=== PATIENT | female | born 1950 | race Caucasian/White ===

== ENCOUNTER 2017-06-21 10:30 | Day surgery (SDC) | payer MEDICARE, OTHER ==
--- NOTE | 2017-06-14 16:10 | HP ---
CC: Dr. Desmond Philip; Dr. Alberto Mcmahon * PREOPERATIVE HISTORY AND PHYSICAL: DATE OF PREOPERATIVE HISTORY AND PHYSICAL EXAMINATION: 06/13/17 DATE OF SURGERY: This patient is scheduled for same-day surgery admission by Dr. Green on 06/21/17. ATTENDING SURGEON: Dr. Maciej Green * (dictated by Jyoti Velazquez NP). CHIEF COMPLAINT: Gallstones. HISTORY OF PRESENT ILLNESS: The patient is a 66-year-old female referred to Dr. Green by Dr. Mcmahon for gallstones. The patient had seen Dr. Parks for followup of "inflammatory arthritis." She had blood work and was noted to have an abnormal alkaline phosphatase elevated at 139 and was sent for a gallbladder ultrasound. This showed gallstones and calcification of the wall consistent with a "porcelain gallbladder" indicating a risk for carcinoma. She was sent to Dr. Mcmahon and had additional imaging by CAT scan that showed thickening of the fundus felt likely to represent noncalcified stones. Dr. Mcmahon recommended cholecystectomy. She denies any abdominal pain, nausea, vomiting, or diarrhea; she denies any fever or chills; she denies jaundice, tea-colored urine, or tessie colored stools. She does report weight loss of 50 pounds over a 6 to 12-month period, which was intentional. Dr. Green has reviewed the findings with the patient and examined her and has recommended laparoscopic cholecystectomy. Dr. Green discussed the nature of the surgical procedure. The relevant risks, benefits, and alternatives and today I reviewed the typical same-day surgery hospitalization as well as the expected postoperative care and recovery. The patient has had a chance to ask questions and stated that she understands the information and satisfied with the answers given to her questions. She will sign surgical consent on the day of surgery. PAST MEDICAL HISTORY: Inflammatory arthritis, hypothyroidism, and depression. PAST SURGICAL HISTORY: [place] [address] Arizmendi, open reduction and internal fixation after ankle fracture in 1994. MEDICATIONS: 1. Cymbalta 30 mg 1 tablet daily in the morning. 2. Cymbalta 60 mg 1 tablet daily in the morning. 3. Methylphenidate 36 mg 2 tablets daily in the morning. 4. Lamictal 200 mg 1 tablet b.i.d. 5. Mirtazapine 45 mg p.o. daily in the evening. 6. Ziprasidone 80 mg 2 tablets daily in the evening. 7. Levothyroxine 112 mcg p.o. daily in the morning. 8. Hydroxychloroquine 200 mg 2 tablets daily at dinner. 9. Aspirin 81 mg p.o. daily and I advised the patient to take her last dose on 06/13/17. ALLERGIES: PENICILLIN causes swelling and hives; SULFA antibiotics cause swelling and hives; WELLBUTRIN causes hallucination; and TETANUS caused GI upset. FAMILY HISTORY: Mother diagnosed with colon cancer at age 60. Father with a history of myocardial infarction age 74. No known anesthesia complications, bleeding tendencies or clotting disorders. SOCIAL HISTORY: She lives with her ; she quit smoking in 1999; she denies the use of alcohol or other substances. REVIEW OF SYSTEMS: Constitutional: Denies fevers, chills, or excessive fatigue. She had a 50 pounds intentional weight loss over a 6 to 12-month period. Endocrine: No diabetes. She is on thyroid replacement therapy. Hematologic: No easy bruising or bleeding. She has never received a blood transfusion. Respiratory: No chronic or dyspnea on exertion. Cardiovascular: No anginal chest pain or palpitations. Gastrointestinal: No nausea, vomiting, diarrhea, or constipation. No change in bowel habits. No change in the color of stool. No abdominal pain. No heartburn. Genitourinary: No tea-colored urine. No dysuria. Her serum creatinine has been elevated in January 2017 it was 1.46; April 2017 was 1.67, and therefore, it was repeated on 06/13/17 and was 1.89; therefore, she will be referred to her primary care provider Dr. Philip for medical evaluation prior to surgery. Musculoskeletal: Inflammatory arthritis. Neurologic: No headache or blurred vision or areas of focal weakness. General: No anesthesia complications. No history of deep venous thrombosis or pulmonary embolism. PHYSICAL EXAMINATION GENERAL SURVEY: The patient is a 66-year-old female, in no acute distress, well - developed, moderately overweight. VITAL SIGNS: Height 64 inches, weight 177 pounds. Body mass index 30. Blood pressure 94/68, pulse 80 and regular, respiratory rate 16, temperature 98. SKIN: Warm, dry, intact. HEENT: Benign. NECK: Supple. No cervical lymphadenopathy. LUNGS: Breath sounds bilaterally clear and equal. HEART: Regular rate and rhythm. No murmurs or rubs appreciated. ABDOMEN: Active bowel sounds. Soft, nondistended, and nontender throughout. No obvious masses. No organomegaly. No ventral hernias. Negative Guerrero sign. PELVIC: Deferred. RECTAL: Deferred. EXTREMITIES: Warm without edema or skin ulcerations. NEUROLOGIC: Alert and oriented x3. Steady gait. IMPRESSION: Calculus of gallbladder without cholecystitis without obstruction. PLAN: Same-day surgery admission to Dr. Green' service on 06/21/17 for laparoscopic cholecystectomy. JYOTI VELAZQUEZ, SPARE FIXER [id number]/[facility] #: [id number] MTDMarialuisa
[~2017-06-21 10:30] MED LIST: Buffered Lidocaine 0.9% SYRIN* 5 ML/SYR SYRINGE INTRADERM ONE; Sodium Citrate/Citric Acid* 15 ML UDC PO ONE
[2017-06-21] MEDS ORDERED: Heparin VIAL(*) 5000 UNITS/ML VIAL (FIVE THOUSAND) ONE (11:03)
[2017-06-21] MEDS ORDERED: Clindamycin 900 MG IVPREMIX(* 900 MG/50 ML SDV IV ONE (11:03)
[2017-06-21] MEDS ORDERED: Sodium Citrate/Citric Acid* 15 ML UDC ONE (11:03)
[2017-06-21 11:36] LABS: BUN/Creatinine Ratio 6.8 (8-20); Calcium 9.7 mg/dL (8.6-10.3); EGFR African American 41.4 (>60); EGFR Non-African American 32.2 (>60); Potassium 3.8 mmol/L (3.5-5.0)
[2017-06-21] MEDS ORDERED: Bupivacaine 0.5% SDV PF* 30 ML VIAL ONE (13:40)
[2017-06-21] MEDS ORDERED: Lidocaine 2% PF * 5 ML VIAL ONE (13:45)
[2017-06-21] MEDS ORDERED: Propofol* 10 MG/ML 20 ML BTL IV PUSH ONE (13:45)
[2017-06-21] MEDS ORDERED: Cisatracurium* 2 MG/ML MDV 5 ML ONE (13:46)
[2017-06-21] MEDS ORDERED: fentaNYL* 50 MCG/ML 2 ML VIAL (100 MCG VIAL) ONE (14:06)
[2017-06-21] MEDS ORDERED: Glycopyrrolate IV* 0.2 MG/ML 1 ML VIAL ONE (15:07)
[2017-06-21] MEDS ORDERED: Neostigmine Methylsulfate* 2 MG/2 ML SYRINGE ONE (15:07)
[2017-06-21] MEDS ORDERED: fentaNYL* 50 MCG/ML 2 ML VIAL (100 MCG VIAL) IV PRN (15:13)
[2017-06-21] MEDS ORDERED: DiMENhydriNATE IV* 50 MG/ML VIAL IV PUSH PRN (15:13)
[2017-06-21] MEDS ORDERED: oxyCODONE/Acetamin 5/325 MG* TAB PO PRN (15:33)
--- NOTE | 2017-06-21 15:33 | SURGPN ---
Brief Operative Note - Surgery Procedures: Pre-op dx: Gallstones Post-op dx: Gallbladder mass Procedure: Diagnostic laparoscopy, lysis of adhesions Anesthesia: GEN Ralph Girard Surgeon: Norma Assist: JULES Lux EBL: minimal <20 mL Specimen: none Fluids: NS 600 mL, LR 50 mL Drains: none Findings: see dictated note
[2017-06-21 16:32] VITALS: BP 113/65
--- NOTE | 2017-06-22 06:54 | OP ---
CC: Desmond Philip MD; Alberto Mcmahon MD * DATE OF OPERATION: 06/21/17 - [facility] DATE OF : 54 SURGEON: Maciej Green MD HARDWARE TEST ENGINEER: ANJELICA Hardy ANESTHESIOLOGIST: Morris Girard DO ANESTHESIA: General endotracheal. PRE-OP DIAGNOSIS: Gallstones. POST-OP DIAGNOSIS: Gallbladder mass. OPERATIVE PROCEDURE: Diagnostic laparoscopy with laparoscopic lysis of adhesions and aborted laparoscopic cholecystectomy. ESTIMATED BLOOD LOSS: Minimal. SPECIMEN: None. DRAINS: None. COMPLICATIONS: None. COUNTS: Instrument, needle, and sponge counts were correct. DESCRIPTION OF PROCEDURE: The patient was brought to the operating room and placed on the table supine. Sequential compression devices were placed on both extremities. She was administered general anesthesia and the abdomen was prepped and draped in the usual sterile fashion. Entry into the abdomen was through a supraumbilical transverse incision using an open technique. After accessing the peritoneal cavity, 12 mm trocar was placed. Carbon dioxide was insufflated to a pressure of 15 mmHg. Laparoscope was introduced. There were noted to be numerous adhesions of omentum surrounding the umbilicus. The laparoscope was positioned to visualize the epigastrium, and a 5 mm port was placed in the subxiphoid position, and then the camera was then positioned there. There were noted to be adhesions surrounding the umbilicus and there were adhesions also noted above the liver. Two 5 mm trocars were placed in the right upper quadrant and lysis of adhesions was performed to free the omentum from the periumbilical space. Subsequently, the attention was turned to the gallbladder. The gallbladder appeared to be distended but not inflamed. The liver edge was elevated. There appeared to be a firm mass within the area of the infundibulum, which was pale and there was a slightly puckered appearance to it. There was adequate visualization of the cystic duct distal to this and this did not appear to be involved with the mass and nor did the common bile duct, which was visualized as well. Inspection of the liver on both the left and right lobes revealed adhesions above the right lobe of the liver with no obvious masses. After short amount of deliberation, given these findings and concern for malignancy, it was felt best to abort the procedure in favor of referring the patient to a hepatobiliary surgeon. The ports were removed under direct visualization. The umbilical wound was closed with 0 Polysorb to approximate the fascia. The skin incisions were closed with 4-0 Monocryl in subcuticular fashion and then Steri-Strips applied. The patient was extubated uneventfully and transferred to recovery room in stable condition. [id number]/[facility] #: [id number] MTDD
== END 2017-06-21 17:05 | disposition home or self-care (01) ==
LOC: OR 10:30
PROVIDERS: ATTEND Surgery
DX: K82.8 Other specified diseases of gallbladder (principal); K66.0 Peritoneal adhesions (postprocedural) (postinfection); E03.9 Hypothyroidism, unspecified; F31.9 Bipolar disorder, unspecified; N18.9 Chronic kidney disease, unspecified; Z79.82 Long term (current) use of aspirin; Z88.0 Allergy status to penicillin; Z88.2 Allergy status to sulfonamides; Z88.7 Allergy status to serum and vaccine; Z88.8 Allergy status to other drugs, medicaments and biological substances; Z87.891 Personal history of nicotine dependence
CPT/HCPCS: 36415; 80048; A9270-GY; J1644; J2704; J3010

== ENCOUNTER 2018-01-18 06:41 | Day surgery (SDC) | payer MEDICARE, OTHER ==
[~2018-01-18 06:41] MED LIST changes: +Famotidine IV* 10 MG/ML 2 ML (20 mg) IV ONE; +Famotidine TAB* 20 MG ONE; +Proparacaine 0.5% OPHTH.SOL* 15 ML BTL ONE; -Sodium Citrate/Citric Acid* 15 ML UDC PO ONE; +mitoMYcin 0.2 MG (0.02%) in Sterile Water for Inj* 1 ML OPHTHALMIC SCH
[2018-01-18] MEDS ORDERED: Lidocaine 2% PF* 10 ML AMP ONE (07:40)
[2018-01-18] MEDS ORDERED: Hyaluronidase OVINE* 200 UNIT/ML ML SUBCUT ONE (07:40)
[2018-01-18] MEDS ORDERED: Propofol* 10 MG/ML 20 ML BTL IV PUSH ONE (07:41)
[2018-01-18] MEDS ORDERED: Lidocaine 2% PF * 5 ML VIAL ONE (07:41)
[2018-01-18] MEDS ORDERED: fentaNYL* 50 MCG/ML 2 ML VIAL (100 MCG VIAL) ONE (07:41)
[2018-01-18] MEDS ORDERED: Midazolam* 1 MG/ML 2 ML VIAL (2 MG) ONE (07:41)
[2018-01-18] MEDS ORDERED: Triamcinolone Acetonide* 40 MG/ML 1 ML VIAL ONE (07:44)
[2018-01-18] MEDS ORDERED: Atropine 1% OPHTH.SOL* 2 ML BOT - 2 ML ONE (07:44)
[2018-01-18] MEDS ORDERED: Acetylcholine 1:100 OPTH* OPHTH.SOLN ONE (07:44)
[2018-01-18] MEDS ORDERED: Lidocaine 2% EPI 1:200000 MPF*10-20 ML VIAL ONE (07:45)
[2018-01-18] MEDS ORDERED: Neomycin/Polymy/Dex OPTH.SUSP* MAXITROL 0.1% 5 ML ONE (07:45)
[2018-01-18] MEDS ORDERED: Acetaminophen TAB* 325 MG PO PRN (07:56)
[2018-01-18] MEDS ORDERED: HYDROcodone/ACETAMIN 5-325 MG* 1 TAB PO PRN (07:56)
[2018-01-18] MEDS ORDERED: fentaNYL* 50 MCG/ML 2 ML VIAL (100 MCG VIAL) IV PRN (07:56)
[2018-01-18] MEDS ORDERED: Naloxone* 0.4 MG/ML 1 ML VIAL IV PRN (07:56)
[2018-01-18 09:32] VITALS: BP 127/60
--- NOTE | 2018-01-18 14:05 | OP ---
DATE OF OPERATION: 01/18/18 - [facility] DATE OF : 54 SURGEON: Bernardino Lizama MD ANESTHESIA: Local with MAC. PRE-OP DIAGNOSIS: Uncontrolled glaucoma, right eye, severe. POST-OP DIAGNOSIS: Uncontrolled glaucoma, right eye, severe. OPERATIVE PROCEDURE: Trabeculectomy, right eye. COMPLICATIONS: None. DESCRIPTION OF PROCEDURE: The patient was given retrobulbar anesthesia in the operating room, 50:50 of mixture 0.75 Marcaine with 2% lidocaine with epinephrine, 4 cc given in the muscle cone without difficulty. The eye was prepped and draped in usual sterile fashion. Lid speculum was placed, eye rotated inferiorly with a 6-0 silk traction suture through the superior limbus. A fornix based conjunctival peritomy was performed from the 10 o'clock to 12 o 'clock position with the Eze scissors. Subconjunctival Mitomycin-C 0.2 mg/ mL was placed for 1 minute and then thoroughly irrigated with balanced salt solution. Paracentesis was made at the 8 o'clock position with 75 blade. A limbal-based triangular half scleral thickness flap was made with 75 blade and crescent blade. Anterior chamber entered with 3 mm keratome. Miochol instilled into the anterior chamber, DisCoVisc into the anterior chamber. Trabecular block 3 x 1 mm was excised using a Vicki punch and a peripheral iridectomy performed with Vannas scissors. The scleral flap was then sutured down with one 10-0 nylon suture at the apex, suture tension adjusted for proper fluid flow. The conjunctiva was closed using a running locking 10-0 nylon along the limbus and then 10-0 Vicryl along the lateral wing. Anterior chamber reinflated with balanced salt solution and all wounds checked and found to be water tight. Subtenon Kenalog 40 mg/mL 1 mL was given at the conclusion of the surgery. Topical atropine and Maxitrol were given and then the eye was patched. [id number]/[facility] #: [id number] [facility]
== END 2018-01-18 09:53 | disposition home or self-care (01) ==
LOC: OREAST 06:41
PROVIDERS: ATTEND Specialist
DX: H40.1113 Primary open-angle glaucoma, right eye, severe stage (principal); E03.9 Hypothyroidism, unspecified; N18.9 Chronic kidney disease, unspecified; F41.8 Other specified anxiety disorders
CPT/HCPCS: A9270-GY; J2001; J2250; J2704; J3010; J3301; J3471; J9280

== ENCOUNTER 2018-05-22 11:14 | Observation (INO) | payer MEDICARE, OTHER ==
[2018-05-22] MEDS ORDERED: NS 0.9% 1000 ML* 1,000 ML IV ONE (11:19)
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
--- NOTE | 2018-05-22 11:39 | RAD ---
HISTORY: Neurological changes/code reynolds COMPARISONS: None TECHNIQUE: Multiple contiguous axial CT scans were obtained of the head without intravenous contrast. FINDINGS: HEMORRHAGE/INFARCT: There is no hemorrhage or acute infarct. MASSES/SHIFT: There is no mass or shift. EXTRA-AXIAL SPACES: There are no extra-axial fluid collections. SULCI AND VENTRICLES: The sulci and ventricles are normal in size and position for the patient's stated age. CEREBRUM: There are no focal parenchymal abnormalities. BRAINSTEM: There are no focal parenchymal abnormalities. CEREBELLUM: There are no focal parenchymal abnormalities. VESSELS: The vessels are grossly normal. PARANASAL SINUSES: The paranasal sinuses are clear. ORBITS: The orbits are unremarkable. BONES AND SOFT TISSUE: No bone or soft tissue abnormalities are noted. OTHER: None IMPRESSION: NO ACUTE INTRACRANIAL PATHOLOGY. PRELIMINARY FINDINGS WERE DISCUSSED WITH DR. LAGUNA AT APPROXIMATELY 11:29 AM ON MAY 22, 2018.
[2018-05-22 11:42] LABS: ABS Basophils 0.1 10^3/ul (0-0.2); ABS Eosinophils 0.1 10^3/ul (0-0.6); ABS Lymphocytes 1.2 10^3/ul (1.0-4.8); ABS Monocytes 0.4 10^3/ul (0-0.8); ABS Neutrophils 3.8 10^3/ul (1.5-7.7); ABS Nucleated RBC 0 10^3/ul; Hematocrit 40 % (35-47); Hemoglobin 13.5 g/dl (12.0-16.0); Lymphocyte % 21.8 % (25-47); Mean Corpuscular HGB Conc 34 g/dl (31-36); Mean Corpuscular Hemoglobin 31 pg (27-31); Mean Corpuscular Volume 90 fL (80-97); Mean Platelet Volume 6.8 um3 (7.4-10.4); Nucleated Red Blood Cells % 0.1; Platelet Count 218 10^3/ul (150-450); Red Blood Count 4.42 10^6/ul (4.00-5.40); Red Cell Distribution Width 13 % (10.5-15); White Blood Count 5.6 10^3/ul (3.5-10.8)
[2018-05-22 11:54] LABS: INR 0.88 (0.77-1.02)
[2018-05-22 12:00] LABS: EGFR Non-African American 34.3 (>60)
--- NOTE | 2018-05-22 12:12 | RAD ---
HISTORY: Neurological Changes/Code Basilio COMPARISONS: November 23, 2016 VIEWS: 1: frontal portable view of the chest at 11:50 AM FINDINGS: LINES AND TUBES: None. CARDIOMEDIASTINAL SILHOUETTE: The cardiomediastinal silhouette is normal for portable technique. PLEURA: The costophrenic angles are sharp. No pleural abnormalities are noted. LUNG PARENCHYMA: The lungs are clear. ABDOMEN: The upper abdomen is clear. There is no subphrenic gas. BONES AND SOFT TISSUES: No bone or soft tissue abnormalities are noted. IMPRESSION: NO ACTIVE CARDIOPULMONARY DISEASE.
[2018-05-22] MEDS ORDERED: Acetaminophen TAB* 325 MG PO PRN (13:55)
[2018-05-22 14:00] LABS: Urine Appearance Cloudy; Urine Blood Negative (Negative); Urine Color Yellow; Urine Ketones Negative (Negative); Urine Protein Negative (Negative); Urine Specific Gravity 1.003 (1.010-1.030); Urine Urobilinogen Negative (Negative)
[2018-05-22] MEDS ORDERED: NS 0.45% 1000 ML BAG* 1,000 ML IV SCH (14:00)
[2018-05-22] MEDS ORDERED: clonazePAM TAB(*) 1 MG PO PRN (14:01)
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
--- NOTE | 2018-05-22 15:29 | RAD ---
INDICATION: TIA. COMPARISON: There are no relevant prior studies available for comparison. TECHNIQUE: Multiple grayscale, color and Doppler tracings of the common, internal and external carotid and vertebral arteries were obtained. Stenosis estimations reflect velocity criteria that it been correlated to angiographic stenosis calculations based on the distal internal carotid diameter. RIGHT CAROTID: There is very mild plaque within the right carotid bulb and proximal internal carotid artery. The peak systolic velocity in the proximal right internal carotid artery is 53 cm/s and the maximum end-diastolic velocity is 22 cm/s. The peak systolic velocity in the distal right common carotid artery is 66 cm/s and the maximum end-diastolic velocity is 24 cm/s. The internal to common carotid artery ratio is 0.8. This would be consistent with a less than 50% and closer to 0% stenosis. LEFT CAROTID: There is very mild plaque within the left carotid bulb and proximal internal carotid artery. The peak systolic velocity in the proximal left internal carotid artery is 56 cm/s and the maximum end-diastolic velocity is 16 cm/s. The peak systolic velocity in the distal left common carotid artery is 71 cm/s and the maximum end-diastolic velocity is 23 cm/s. The internal to common carotid artery ratio is 0.8. This would be consistent with a less than 50% and closer to 0% stenosis. VERTEBRALS: There is antegrade flow in both vertebral arteries. IMPRESSION: THERE IS VERY MILD PLAQUE PRESENT BILATERALLY WITHIN THE CAROTID ARTERIES. NO HEMODYNAMICALLY SIGNIFICANT STENOSIS IS SEEN. CPT II Codes: 3100F
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
[2018-05-22] MEDS: Heparin VIAL(*) 5000 UNITS/ML VIAL (FIVE THOUSAND) SUBCUT SCH ×2 (16:23→21:23)
[2018-05-22] MEDS: Aspirin TAB* 325 MG PO SCH (16:23)
--- NOTE | 2018-05-22 17:56 | ECHO ---
Patient: OLU SALAS Rec#: [id number] : 1950 Date: 05/22/2018 Age: 67y Height: 163 cm / 64.2 in Weight: 66.68 kg / 147.0 lbs Sex: F BSA: 1.72 Room#: [facility] Admit Date#: 05/22/2018 Type: Inpatient Referring: Jovany Fisher NP Reading: Keith Yates MD Front End Web Developer: Susan Olivares RDCS CC: Desmond Philip MD Transthoracic Echocardiogram Indication: TIA BP: 146/80 HR: 64 Rhythm: NSR Findings History: Smoker, hypothroidism. Technical Comments: The study quality is fair. Completed at 1630. Left Ventricle: The left ventricular chamber size is normal. There is no left ventricular hypertrophy. There is a prominent septal knuckle. There is normal left ventricular systolic function. The estimated ejection fraction is 55-60%. Abnormal left ventricular diastolic function is observed. There is an E to A reversal in the mitral valve flow pattern suggestive of diastolic dysfunction. Left Atrium: The left atrial chamber size is normal. Right Ventricle: Moderator Band present. The right ventricular cavity size is normal. The right ventricular global systolic function is normal. Right Atrium: The right atrial cavity size is normal. Interatrial septum appears intact without evidence of shunting. The bubble study is negative. A patent foramen ovale is not demonstrated with color Doppler and agitated contrast. Aortic Valve: The aortic valve is trileaflet. The aortic valve leaflets are mildly thickened. There is a trace of aortic regurgitation. There is no evidence of aortic stenosis. Mitral Valve: The mitral valve leaflets are mildly thickened. There is a trace of mitral regurgitation. There is no evidence of mitral stenosis. Tricuspid Valve: The tricuspid valve leaflets are normal. There is trace tricuspid regurgitation. Unable to estimate the right ventricular systolic pressure. There is no tricuspid stenosis. Pulmonic Valve: The pulmonic valve appears normal. There is no evidence of pulmonic regurgitation. There is no pulmonic stenosis. Pericardium: There is no significant pericardial effusion. Aorta: There is no dilatation of the ascending aorta. There is no dilatation of the aortic arch. The aortic root is normal in size. Pulmonary Artery: The main pulmonary artery appears normal. Venous: The inferior vena cava appears normal in size. There is a greater than 50% respiratory change in the inferior vena cava dimension. Contrast: Normal saline was used as contrast for the bubble study. Images 46 and 47. Intravenous contrast was used to help determine presence of intracardiac shunting. Summary: There was not any prior study for comparison. Conclusions There is normal left ventricular systolic function. The estimated ejection fraction is 55-60%. There is an E to A reversal in the mitral valve flow pattern suggestive of diastolic dysfunction. The right ventricular global systolic function is normal. A patent foramen ovale is not demonstrated with color Doppler and agitated contrast. There is a trace of aortic regurgitation. There is a trace of mitral regurgitation. There is trace tricuspid regurgitation. Unable to estimate the right ventricular systolic pressure. There is no significant pericardial effusion. Measurements Name Value Normal Range RVIDd (AP) 2D 3.2 cm (0.9 - 2.6) RVDdMajor (2D) 3.8 cm (2.2 - 4.4) RAd ISD 4CH 4.4 cm (3.4 - 4.9) RA (A4C)W 3.3 cm (2.9 - 4.6) IVSd (2D) 1 cm (0.6 - 1) LVPWd (2D) 1 cm (0.6 - 1) LVIDd (2D) 4.2 cm (3.6 - 5.4) LVIDs (2D) 3.7 cm - LV FS (2D) 12 % (25 - 45) Aortic Annulus 1.9 cm (1.4 - 2.6) Ao root diameter (2D) 2.7 cm (2.1 - 3.5) Ascending Ao 2.7 cm (2.1 - 3.4) Aortic arch 2.8 cm (1.8 - 3.4) LA dimension (AP) 2D 3.5 cm (2.3 - 3.8) LAd ISD 4CH 4.5 cm (2.9 - 5.3) LA ISD 4CH W 3.8 cm (2.5 - 4.5) Name Value Normal Range LA ESV BP (A/L) index 26 ml/m2 - Name Value Normal Range MV E-wave Vmax 0.7 m/sec - MV deceleration time 335 msec - MV A-wave duration 0.9 msec - MV E:A ratio 0.8 ratio - LV septal e' Vmax 0.08 m/sec - LV lateral e' Vmax 0.09 m/sec - LV E:e' septal ratio 8.75 ratio - LV E:e' lateral ratio 7.78 ratio - Name Value Normal Range AV Vmax 1.3 m/sec - AV VTI 28.2 cm - AV peak gradient 7 mmHg - AV mean gradient 4 mmHg - LVOT Vmax 1 m/sec - LVOT VTI 19.6 cm - LVOT peak gradient 4 mmHg - LVOT mean gradient 2 mmHg - KARLA Vmax 0.9 m/sec - Name Value Normal Range IVC diameter 1.7 cm - Name Value Normal Range PV Vmax 0.9 m/sec - PV peak gradient 3 mmHg -
[2018-05-22] MEDS ORDERED: Ziprasidone CAP* 80 MG PO SCH (18:00)
[2018-05-22] MEDS ORDERED: Hydroxychloroquine TAB* 200 MG PO SCH (18:00)
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
[2018-05-22] MEDS ORDERED: Iodixanol* (CONTRAST) 320 MG/ML 100 ML SDV IV ONE (20:54)
[2018-05-22] MEDS ORDERED: Methylphenidate ER TAB* 18 MG PO SCH (21:00)
[2018-05-22] MEDS ORDERED: Mirtazapine TAB* 15 MG PO SCH (21:00)
[2018-05-22] MEDS: lamoTRIgine TAB(*) 100 MG PO SCH (21:20)
[2018-05-23] MEDS ORDERED: Levothyroxine TAB* 112 MCG TAB PO SCH (06:00)
[2018-05-23] MEDS: Heparin VIAL(*) 5000 UNITS/ML VIAL (FIVE THOUSAND) SUBCUT SCH (06:06)
[2018-05-23 06:34] LABS: ABS Basophils 0 10^3/ul (0-0.2); ABS Eosinophils 0.1 10^3/ul (0-0.6); ABS Lymphocytes 2.2 10^3/ul (1.0-4.8); ABS Monocytes 0.4 10^3/ul (0-0.8); ABS Neutrophils 4.2 10^3/ul (1.5-7.7); ABS Nucleated RBC 0 10^3/ul; Eosinophil % 1.2 % (0-6); Hematocrit 41 % (35-47); Hemoglobin 14.1 g/dl (12.0-16.0); Lymphocyte % 31.7 % (25-47); Mean Corpuscular HGB Conc 35 g/dl (31-36); Mean Corpuscular Hemoglobin 31 pg (27-31); Mean Corpuscular Volume 90 fL (80-97); Mean Platelet Volume 6.9 um3 (7.4-10.4); Nucleated Red Blood Cells % 0; Platelet Count 216 10^3/ul (150-450); Red Blood Count 4.54 10^6/ul (4.00-5.40); Red Cell Distribution Width 13 % (10.5-15); White Blood Count 6.9 10^3/ul (3.5-10.8)
[2018-05-23 06:56] LABS: EGFR Non-African American 37.1 (>60)
--- NOTE | 2018-05-23 08:02 | RAD ---
HISTORY: abnl MRA brain, ? poor flow basilar/vert arteries COMPARISONS: MR marlin dated May 22, 2018 TECHNIQUE: Multiple contiguous axial CT scans were obtained of the head and neck after the administration of nonionic intravenous contrast timed to the systemic arterial phase of contrast enhancement. Coronal and sagittal multiplanar reformations are submitted for review. Multiple 3-D maximum intensity projection reconstructions are also submitted for review. FINDINGS: CTA NECK: AORTIC ARCH: There is a normal three-vessel branching pattern of the aortic arch. There is no ostial or proximal stenosis of the cephalic great vessels. RIGHT VERTEBRAL ARTERY: The right vertebral artery is patent along its course, without stenosis. LEFT VERTEBRAL ARTERY: The left vertebral artery is patent along its course, without stenosis. DOMINANCE: The vertebral arteries are codominant. RIGHT COMMON CAROTID ARTERY: The right common carotid artery is patent. The right carotid bifurcation occurs at C4-C5 RIGHT INTERNAL CAROTID ARTERY: There is no right internal carotid artery stenosis by NASCET criteria. RIGHT EXTERNAL CAROTID ARTERY: The right external carotid artery is unremarkable. LEFT COMMON CAROTID ARTERY: The left common carotid artery is patent. The left carotid bifurcation occurs at C4-C5 LEFT INTERNAL CAROTID ARTERY: There is no left internal carotid artery stenosis by NASCET criteria. LEFT EXTERNAL CAROTID ARTERY: The left external carotid artery is unremarkable. VENOUS CIRCULATION: The venous system is unremarkable. SALIVARY GLANDS: The parotid glands, submandibular glands, sublingual glands are normal. NASAL CAVITY/NASOPHARYNX: The nasal cavity and nasopharynx are normal. ORAL CAVITY/OROPHARYNX: The oral cavity is obscured by streak artifact from dental amalgam. The visualized oral cavity and oropharynx are unremarkable. LARYNGEAL APPARATUS/HYPOPHARYNX: The laryngeal apparatus and hypopharynx are normal. UPPER AIRWAY/UPPER ESOPHAGUS: The visualized upper airway and esophagus are normal. LUNG APICES: The lung apices are clear. THYROID GLAND: The thyroid gland is normal. LYMPH NODES: There is no lymphadenopathy by size criteria. BONES AND SOFT TISSUES: Degenerative changes are noted of the spine. CTA HEAD: INTRACRANIAL CIRCULATION: There is no aneurysm, vascular malformation, occlusion, or stenosis of the visualized intracranial circulation. The suspected basilar tip aneurysm noted on MRA is not evident on the current examination. The flow limitation noted in the distal vertebral arteries is felt to represent artifact on MRI. The distal vertebral arteries are normal on CTA. The anterior communicating artery complex is clear. There is a origin of the left posterior cerebral artery. The right posterior communicating artery is dominant over the P1 segment of the right posterior cerebral artery. With the majority of the [employer] flow from the anterior circulation, the vertebrobasilar system is diminutive which is felt to represent an anatomic variation in this patient. VENOUS CIRCULATION: The venous system is unremarkable. PERFUSION: There is no obvious parenchymal perfusion deficit. HEMORRHAGE/INFARCT: There is no hemorrhage or acute infarct. MASSES/SHIFT: There is no mass or shift. EXTRA-AXIAL SPACES: There are no extra-axial fluid collections. SULCI AND VENTRICLES: The sulci and ventricles are normal in size and position for the patient's stated age. CEREBRUM: There are no focal parenchymal abnormalities. BRAINSTEM: There are no focal parenchymal abnormalities. CEREBELLUM: There are no focal parenchymal abnormalities. PARANASAL SINUSES: The paranasal sinuses are clear. ORBITS: The orbits are unremarkable. BONES AND SOFT TISSUE: No bone or soft tissue abnormalities are noted. OTHER: There is no abnormal enhancement. IMPRESSION: 1. NO ANEURYSM, VASCULAR MALFORMATION, OCCLUSION, OR STENOSIS OF THE VISUALIZED INTRACRANIAL CIRCULATION. THE BASILAR TIP ANEURYSM AND FLOW LIMITATION NOTED ON MRI ARE NOT VISUALIZED ON THE CURRENT STUDY. 2. NO INTERNAL CAROTID ARTERY STENOSIS BY NASCET CRITERIA. CPT II Codes: 3100F
[2018-05-23] MEDS ORDERED: DULoxetine DR CAP* 30 MG CAP.DR PO SCH (09:00)
[2018-05-23] MEDS ORDERED: DULoxetine DR CAP* 60 MG CAP.DR PO SCH (09:00)
[2018-05-23] MEDS: Aspirin TAB* 325 MG PO SCH (09:48)
[2018-05-23] MEDS: Methylphenidate ER TAB* 18 MG PO SCH ×2 (09:48→14:06)
[2018-05-23] MEDS: lamoTRIgine TAB(*) 100 MG PO SCH (09:49)
[2018-05-23] MEDS ORDERED: Benztropine TAB* 1 MG PO SCH (10:30)
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
[2018-05-23 14:23] VITALS: BP 115/77
[2018-05-24] MEDS ORDERED: Aspirin TAB* 325 MG PO SCH (09:00)
== END 2018-05-23 14:10 | disposition home or self-care (01) ==
LOC: ED 11:14 → MEDTELE 13:50
PROVIDERS: ADMIT Student in an Organized Health Care Education/Training Program; ATTEND Internal Medicine
DX: R29.810 Facial weakness (principal); R53.83 Other fatigue; I95.9 Hypotension, unspecified; M06.9 Rheumatoid arthritis, unspecified; Z87.891 Personal history of nicotine dependence; F41.8 Other specified anxiety disorders; E03.9 Hypothyroidism, unspecified; H40.9 Unspecified glaucoma; Z79.82 Long term (current) use of aspirin
CPT/HCPCS: 36415; 70450; 70496; 70498; 70544; 70551; 71045; 80048; 80053; 80061; 80307; 81003; 82272; 83036; 83605; 84443; 84484; 85025; 85610; 85730; 86850; 86900; 86901; 93005; 93306; 93880; 99283; A9270-GY; G0378; G8978-GP-CI; G8979-GP-CH; J1644; Q9967

== ENCOUNTER 2018-05-30 10:28 | Observation (INO) | payer MEDICARE, OTHER ==
[2018-05-30] MEDS ORDERED: NS 0.9% 1000 ML* 1,000 ML IV ONE ×2 (10:38→12:49)
[2018-05-30] MEDS ORDERED: NS 0.9% 1000 ML* 1,000 ML IV SCH (10:45)
[2018-05-30 11:13] LABS: ABS Basophils 0.1 10^3/ul (0-0.2); ABS Eosinophils 0 10^3/ul (0-0.6); ABS Lymphocytes 1.3 10^3/ul (1.0-4.8); ABS Monocytes 0.6 10^3/ul (0-0.8); ABS Neutrophils 3.8 10^3/ul (1.5-7.7); ABS Nucleated RBC 0 10^3/ul; Eosinophil % 0.6 % (0-6); Hematocrit 34 % (35-47); Hemoglobin 11.6 g/dl (12.0-16.0); Lymphocyte % 21.9 % (25-47); Mean Corpuscular HGB Conc 35 g/dl (31-36); Mean Corpuscular Hemoglobin 31 pg (27-31); Mean Corpuscular Volume 89 fL (80-97); Mean Platelet Volume 7.7 um3 (7.4-10.4); Nucleated Red Blood Cells % 0; Platelet Count 182 10^3/ul (150-450); Red Blood Count 3.75 10^6/ul (4.00-5.40); Red Cell Distribution Width 13 % (10.5-15); White Blood Count 5.7 10^3/ul (3.5-10.8)
--- NOTE | 2018-05-30 11:21 | ED ---
Altered Mental Status - HPI Summary HPI Summary: This patient is a 67 year old F BIBA with a chief complaint of AMS since when she "lost a whole day", as she thought it was 05/29/18 today. Pt A&Ox3. Pt endorses falling and hitting her head this AM; she denies dizziness, her legs "just got tangled". Pt endorses eating and drinking normally. Pt denies neck pain, abd pain, and dizziness. Pt states she "feels fine" today, and is relatively asymptomatic. - History Of Current Complaint Chief Complaint: EDAltMentalStatus Stated Complaint: AMS Time Seen by Provider: 05/30/18 10:32 Hx Obtained From: Patient Onset/Duration: Unknown, Resolved Timing: Constant Severity Initially: Moderate Severity Currently: None Character: Confusion Aggravating Factor(s): Unknown Alleviating Factor(s): Unknown Associated Signs And Symptoms: Positive: Recent Trauma - fall this AM. Negative : Dizziness, Fever - Allergies/Home Medications Allergies/Adverse Reactions: Allergies Allergy/AdvReac Type Severity Reaction Status Date / Time Penicillins Allergy Severe Hives/Diff. Verified 05/30/18 10:39 Breathing/I tching Sulfa (Sulfonamide Allergy Severe Hives/Diff. Verified 05/30/18 10:39 Antibiotics) Breathing/I tching bupropion Allergy Intermediate Hallucinati Verified 05/30/18 10:39 ons divalproex sodium Allergy Intermediate Dizziness Verified 05/30/18 10:39 [From Depakote] shellfish derived Allergy Mild Vomiting Verified 05/30/18 10:39 Tetanus Vaccines and Toxoid Allergy Mild Vomiting Verified 05/30/18 10:39 Home Medications: Home Medications Aspirin TAB* [Aspirin 325 MG TAB*] 325 mg PO DAILY 05/30/18 [History Confirmed 05/30/18] PMH/Surg Hx/FS Hx/Imm Hx Endocrine/Hematology History: Reports: Hx Thyroid Disease - HYPOTHYROID Denies: Hx Diabetes, Hx Systemic Lupus Erythematosus Cardiovascular History: Denies: Hx Congestive Heart Failure, Hx Hypertension, Hx Pacemaker/ICD, Other Cardiovascular Problems/Disorders Respiratory History: Denies: Other Respiratory Problems/Disorders GI History: Denies: Other GI Disorders History: Reports: Other Problems/Disorders - STRESS INCONTINENCE Denies: Hx Dialysis, Hx Kidney Infection, Hx Renal Disease Musculoskeletal History: Reports: Hx Arthritis - KNEES Denies: Hx Rheumatoid Arthritis Sensory History: Reports: Hx Cataracts - START OF ONE, Hx Contacts or Glasses - READING GLASSES, Hx Glaucoma - RIGHT EYE, Hx Vision Problem - Blind right eye Denies: Hx Hearing Aid Opthamlomology History: Reports: Hx Cataracts - START OF ONE, Hx Contacts or Glasses - READING GLASSES, Hx Glaucoma - RIGHT EYE, Hx Vision Problem - Blind right eye Neurological History: Reports: Hx Migraine - NONE IN 10 YEARS Denies: Other Neuro Impairments/Disorders Psychiatric History: Reports: Hx Anxiety - ON MEDICATION, Hx Depression - ON MEDICATION Denies: Hx Panic Disorder - Cancer History Hx Chemotherapy: No Hx Radiation Therapy: No - Surgical History Surgery Procedure, Year, and Place: Appendectomy 2000. Left Ankle 1979 - hardware placed. Cholecystectomy 2016 Hx Anesthesia Reactions: No Infectious Disease History: No Infectious Disease History: Denies: Hx of Known/Suspected MRSA, Traveled Outside the [place] in Last 30 Days - Family History Known Family History: Positive: Other - Breast CA- grandmother, no fam hx of seizure or CVA Negative: Cardiac Disease, Renal Disease - Social History Occupation: Retired Lives: Alone Alcohol Use: None Substance Use Type: Reports: None Hx Tobacco Use: No Smoking Status (MU): Former Smoker Amount Used/How Often: 1 PPD for 30 years Review of Systems Negative: Fever Negative: Abdominal Pain Negative: Arthralgia - neck Neurological: Other - NEGATIVE: dizziness Positive: Syncope - fall this AM, "lost a day" All Other Systems Reviewed And Are Negative: Yes Physical Exam - Summary Physical Exam Summary: Appearance: Well appearing, no pain distress Skin: warm, dry, reflects adequate perfusion Head/face: normal Eyes: EOMI, TIFFANY ENT: dry mucous membranes Neck: supple, non-tender Respiratory: CTA, breath sounds present Cardiovascular: RRR, pulses symmetrical Abdomen: non-tender, soft Bowel: present Musculoskeletal: normal, strength/ROM intact Neuro: normal, sensory motor intact, A&Ox2 Triage Information Reviewed: Yes Vital Signs On Initial Exam: Initial Vitals Temp Pulse Resp BP Pulse Ox 98.5 F 71 16 116/66 98 05/30/18 10:30 05/30/18 10:30 05/30/18 10:30 05/30/18 10:30 05/30/18 10:30 Vital Signs Reviewed: Yes Diagnostics - Vital Signs Vital Signs Temp Pulse Resp BP Pulse Ox 05/30/18 10:30 98.5 F 71 16 116/66 98 - Laboratory Lab Results: Lab Results 05/30/18 Range/Units 10:49 WBC 5.7 (3.5-10.8) 10^3/ul RBC 3.75 L (4.00-5.40) 10^6/ul Hgb 11.6 L (12.0-16.0) g/dl Hct 34 L (35-47) % MCV 89 (80-97) fL MCH 31 (27-31) pg MCHC 35 (31-36) g/dl RDW 13 (10.5-15) % Plt Count 182 (150-450) 10^3/ul MPV 7.7 (7.4-10.4) um3 Neut % (Auto) 66.4 (38-83) % Lymph % (Auto) 21.9 L (25-47) % [place] % (Auto) 10.0 H (0-7) % Eos % (Auto) 0.6 (0-6) % Baso % (Auto) 1.1 (0-2) % Absolute Neuts (auto) 3.8 (1.5-7.7) 10^3/ul Absolute Lymphs (auto) 1.3 (1.0-4.8) 10^3/ul Absolute Monos (auto) 0.6 (0-0.8) 10^3/ul Absolute Eos (auto) 0 (0-0.6) 10^3/ul Absolute Basos (auto) 0.1 (0-0.2) 10^3/ul Absolute Nucleated RBC 0 10^3/ul Nucleated RBC % 0 Result Diagrams: 05/30/18 10:49 05/30/18 10:49 Lab Statement: Any lab studies that have been ordered have been reviewed, and results considered in the medical decision making process. - Radiology CXR Xray Interpretation: No Acute Changes Radiology Interpretation Completed By: Radiologist - No active disease. Dr. Parker has reviewed this report. - CT brain CT Interpretation: No Acute Changes CT Interpretation Completed By: Radiologist - No evidence for acute intracranial abnormality. - EKG 1045 Cardiac Rate: NL - 70 EKG Rhythm: Sinus Rhythm ST Segment: Normal Ectopy: None EKG Interpretation: No acute changes Re-Evaluation - Re-Evaluation First Eval Re-Evaluation Time: 12:25 Change: Unchanged Comment: Family wanted to speak with Dr. Parker about updated info on labs. They endorse that pt was in a state of AMS for nearly 12 hours. Altered Mental Statu Course/Dx - Course Course Of Treatment: A 67-year-old F presents to the ED with a CC of AMS for 12 hours. (+) memory loss of a full day, normal intake, A&Ox3, fall this AM with associated head trauma due to tangling legs, not dizziness. (-) abd pain, neck pain, and dizziness. A CXR reveals no active disease. A CTB reveals no evidence for acute intracranial findings. An EKG reveals NSR 70 BPM with no acute changes. In the ED course, pt was given nl saline. Pt shows low H&H, and high creatinine. - Diagnoses Differential Diagnosis/HQI/PQRI: Intracranial Bleed, Metabolic Disorder, Overdose, Sepsis Provider Diagnoses: Altered mental status, Dehydration, Recurrent falls - Provider Notifications Discussed Care Of Patient With: Teodoro Joiner Time Discussed With Above Provider: 13:00 Instructed by Provider To: Other - saw pt in ED, recommends admission. - Critical Care Time Critical Care Time: 30-74 min Discharge - Sign-Out/Discharge Documenting (check all that apply): Patient Departure - admit - Discharge Plan Condition: Fair Disposition: ADMITTED TO [facility] Referrals: Desmond Philip MD [Primary Care Provider] - - Billing Disposition and Condition Condition: FAIR Disposition: Admitted to [facility] - Attestation Statements Document Initiated by Omkar: Yes Documenting Scribe: Prem Motta Provider For Whom Omkar is Documenting (Include Credential): Dr. Edmar Parker MD Scribe Attestation: Prem Goodman, scribed for Dr. Edmar Parker MD on 05/30/18 at 1433. Scribe Documentation Reviewed: Yes Provider Attestation: The documentation as recorded by the Prem hatch accurately reflects the service I personally performed and the decisions made by me, Dr. Edmar Parker MD Consult Consult: [id number] Dr. Nam: accepts admission
[2018-05-30 11:26] LABS: EGFR Non-African American 26.9 (>60)
--- NOTE | 2018-05-30 11:31 | RAD ---
INDICATION: Multiple falls, altered mental status. COMPARISON: Comparison is made with prior CT and MRI of the brain studies from May 22, 2018. TECHNIQUE: Contiguous axial sections of the brain were obtained from the skull base to the vertex without contrast. FINDINGS: The ventricles, cisterns and sulci are enlarged consistent with age-related atrophy. No significant focal abnormality or mass effect is seen. There is no evidence for hemorrhage. No significant focal osseous abnormality is seen. The visualized portion of the paranasal sinuses and mastoid air cells appear clear. IMPRESSION: NO EVIDENCE FOR ACUTE INTRACRANIAL ABNORMALITY.
[2018-05-30 11:49] LABS: INR 0.87 (0.77-1.02)
--- NOTE | 2018-05-30 12:00 | RAD ---
INDICATION: Dehydration COMPARISON: May 22, 2018 TECHNIQUE: An AP portable view obtained at 1113 hours is submitted. FINDINGS: Bones/Soft Tissues: There are no acute bony findings. Cardiomediastinal: The cardiomediastinal silhouette is normal. Lungs: There are no infiltrates. Pleura: There are no pleural effusions. Other: None IMPRESSION: NO ACTIVE DISEASE.
[2018-05-30 14:14] LABS: Urine Appearance Clear; Urine Blood Negative (Negative); Urine Color Yellow; Urine Ketones Negative (Negative); Urine Protein Negative (Negative); Urine Red Blood Cell Trace(0-2/hpf) (Absent); Urine Specific Gravity 1.006 (1.010-1.030); Urine Urobilinogen Negative (Negative); Urine White Blood Cell Trace(0-5/hpf) (Absent)
[2018-05-30] MEDS: NS 0.9% 1000 ML* 1,000 ML IV SCH (14:55)
[2018-05-30] MEDS ORDERED: clonazePAM TAB(*) 1 MG PO PRN (15:01)
[2018-05-30] MEDS ORDERED: Oxybutynin TAB* 5 MG PO PRN (15:01)
--- NOTE | 2018-05-30 15:44 | CONS ---
CC: Dr. Philip * NEUROLOGY CONSULTATION: DATE OF CONSULT: 05/30/18 LOCATION: She is in the emergency room, to be admitted. REFERRING PHYSICIAN: Dr. Parker. CHIEF COMPLAINT: Confusion, falling. HISTORY OF PRESENT ILLNESS: Shanta Arizmendi is a 67-year-old woman brought in by her son and daughter because of confusion. She manages her own medications as well as those of her 's who has Alzheimer's disease and diabetes. They spoke with her last night and she seemed to be fine. This morning, when they spoke to her on the phone, she was disoriented as to time. She thought it was nighttime and she was making hot dogs for dinner. She told her son that they were going to bed soon. They went over and she remained disoriented for time. She had fallen sometime early today and had been falling multiple times in at least several weeks. She has banged her head today as well as other times this past week. She has a bruise on her forehead, which looks at least several days old and also a bump on her occiput. She had a CT of her brain, which I reviewed the images of and that does not show any subdurals or other abnormalities. She was just in the hospital on 05/22/18, and discharged on 05/23/18, when she was found to be lethargic and had a left facial droop. Her son said that she was found that way one morning when they went to get her and it resolved by the time she got to the emergency room. She had a workup for transient ischemic attack including a negative MR angiogram, MRI of the brain, CT angiogram, transthoracic echocardiogram, and carotid ultrasound study. She was discharged on an increased dose of aspirin 162 mg as well as the addition of benztropine 0.5 mg twice per day, which was a new medication. Also, her Geodon was cut from 160 mg a day to 80 mg per day. She reports that she saw her primary care physician, Dr. Philip this past week and was put on a medicine for incontinence that she does not know the name of. She manages her own medications and puts them out in a pillbox. Her son and daughter do not know her medications and do not have a list with them currently. When she was here a week ago, she was evaluated by Dr. Pringle in neurological consultation and he felt she had signs of parkinsonism. He recommended that benztropine and that her psychotropic medications be reevaluated. She has an appointment with her psychiatrist tomorrow. She had been falling for at least several weeks. She was noted to have a parkinsonism gait by Dr. Pringle last week. She says she just stumbles and loses her balance. There is no history of seizures or episodes of loss of consciousness. PAST MEDICAL HISTORY: Notable for anxiety and depression, hypothyroidism, glaucoma with visual loss in the right eye, rheumatoid arthritis. MEDICATIONS: Uncertain, but at discharge last week, she was on: 1. Aspirin 162 mg p.o. daily. 2. Benztropine 0.5 mg p.o. b.i.d. 3. Concerta 36 mg p.o. b.i.d. 4. Klonopin 1 mg p.o. t.i.d. as needed for anxiety. 5. Plaquenil 400 mg p.o. q.h.s. 6. Geodon 80 mg p.o. q.h.s. 7. Synthroid 112 mcg p.o. daily. 8. Mirtazapine 30 mg p.o. q.h.s. 9. Clonazepam 1 mg p.o. t.i.d. p.r.n. 10. Duloxetine 90 mg p.o. q.a.m. ALLERGIES: She is allergic to PENICILLIN, SULFA DRUGS, and BUPROPION. REVIEW OF SYSTEMS: Notable for recurrent falls. She denies headache or change in vision other than chronic visual loss in the right eye. She denies any difficulty with urination or pain with urination. She says she has been eating and drinking fluids well. She denies heartburn or abdominal pain. Her weight has been stable. She cannot account for her medications well. She realizes that she is confused and that is why she is here. She is able to give details of last week and why she came to the hospital. There is no history of diabetes. She has joint pain, particularly about the left knee. She has been bruising easily and some of the bruises are unaccounted for. She has had spontaneous bruising on the arms. There is no history of heart disease. PHYSICAL EXAM: She is well-nourished, has multiple bruises on her extremities and 1 on her forehead, and has a dry mouth. Temperature is 98.5, blood pressure 116/66, heart rate in the 70s and regular. Respiratory rate is 20, oxygen saturation is 98% on room air. Heart is in a regular rate and rhythm without murmurs. There are no cervical bruits. Oral mucosa is slightly dry. There are some abrasions on both knees. There are bruises of varying ages on both shins. There is some bruising and also some excoriation raines on her forearms bilaterally. She has ulnar deviation of her digits in her hands. Neurologic Exam: The right pupil reacts sluggishly from about 5 down to 3 mm and the left briskly from about 5 down to 3 mm. There is corneal clouding on the right. Funduscopic exam reveals a sharp, pale right optic disc and a normal - appearing left optic disc. Eye movements are normal. Visual treadwell are full in the left eye. Facial musculature is symmetric with grade 2 hypomimia. Facial sensation to light touch is intact. Palate and tongue appear normal. Speech is soft and hypophonic, but clear. Motor exam reveals some cogwheel rigidity of the left arm. There is pain with testing about the left knee. She has antigravity strength in all limbs proximally and distally. There is no rest tremor. Finger taps are slow and uncoordinated in the left hand relative to the right. Reflexes are present and symmetric other than absent ankle reflexes. Plantar responses are flexor bilaterally. I did not attempt to walk her. There is no myoclonus or asterixis. She is alert and oriented to person and place. She initially was disoriented to time, but ultimately was able to give me the month, the year, and that it is in the afternoon. She was incorrect on the day of the week. DIAGNOSTIC STUDIES/LAB DATA: In addition to the brain CT, includes a CBC notable for a hemoglobin of 11.4, which is down from 14.1 when she was last in the hospital 7 days ago. Hematocrit is down to 34% from 41%. White blood cell count and platelet count are normal. INR and PTT are normal. Chemistry profile is notable for a bump in her creatinine to 1.88 up from 1.42 seven days ago. Her BUN and the rest of her electrolytes are normal. Liver enzymes are normal. Urinalysis has not been done because she has not been able to produce any urine. She was catheterized and 40 mL of urine was obtained. She is now on her second bag of IV fluids. IMPRESSION AND PLAN: Impression is that of confusion and disorientation in the setting of multiple medications and possible medication misuse, head trauma, and some new metabolic abnormalities including a rise in her creatinine and a drop in her hemoglobin. Her medications need to be clarified. I would recommend discontinuing her anticholinergic medications including benztropine and if she is on an anticholinergic for her bladder, that as well. Recommend discontinuing or at least rapidly tapering her stimulants and maintaining her clonazepam for now. I would also recommend reevaluating her medication dosing based on her renal dysfunction. Her estimated GFR is only 26.9. Given her parkinsonism and recurrent falls, I would recommend also continuing to taper her off her neuroleptic medications. If she is not on them for psychosis, which does not appear to be the case then I think she will be better served off of them. I think antidepressants and her benzodiazepines can be continued for now, but ultimately the benzodiazepines would be best tapered off with her recurrent falls. Dr. Parker is trying to get clarification of her medications and I have asked her family to bring in her pill bottles as well. I think she needs to be admitted to sort out her medications and dosing and perhaps to get an MRI scan of her brain just to make sure she has not suffered a cerebral contusion with her multiple falls. [id number]/[facility] #: [id number] MTDD
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
[2018-05-30] MEDS: Hydroxychloroquine TAB* 200 MG PO SCH (17:56)
[2018-05-30] MEDS ORDERED: Ziprasidone * 20 MG CAP (generic Geodon) PO SCH (18:00)
[2018-05-30 20:17] LABS: Hematocrit 32 % (35-47); Hemoglobin 10.7 g/dl (12.0-16.0)
[2018-05-30] MEDS: lamoTRIgine TAB(*) 100 MG PO SCH (20:38)
[2018-05-30] MEDS: Mirtazapine TAB* 15 MG PO SCH (20:38)
--- NOTE | 2018-05-30 20:41 | HP ---
CC: Desmond Philip MD; Dr. Hi * HISTORY AND PHYSICAL: DATE OF ADMISSION: 05/30/18 PRIMARY CARE PROVIDER: Desmond Phiilp MD PRIMARY PSYCHIATRIST: Dr. Hi. ATTENDING PHYSICIAN: Elizabeth Young MD * (dictated by Susan Torrez NP). CHIEF COMPLAINT: Confusion. HISTORY OF PRESENT ILLNESS: Ms. Arizmendi is a 67-year-old female with past medical history significant for hypothyroidism, glaucoma, arthritis, depression, anxiety , rheumatoid arthritis, and Parkinsonism, who was hospitalized from 05/22/18 to 05/23/18, at which time she was having a left-sided facial droop. She was monitored overnight and felt to have had a possible TIA. She was seen by Neurology. She had essentially negative workup. She was noted to have lip smacking and was started on Cogentin, it was suspected that her Parkinsonism signs could be features that were related to her Zyprexa. At that time, her aspirin was doubled to 162 mg daily. She was to follow up with Neurology in 3 to 4 weeks. Additionally, she was to follow up with her psychiatrist, Dr. Hi, to discuss tapering down some of her psychiatric medications. The patient states she has been doing well, but under a lot of stress that she cares for her elderly mother and . She also reports losing approximately 89 pounds in the last 18 months. She states that her primary care provider has been working her up for this and so far, she has had a negative workup. She had a chest CT in November of this year showing no suspicious pulmonary parenchymal nodules or masses. The patient reports being up-to-date on her colonoscopy. She believes her last colonoscopy was approximately 3 years ago. She states she has not changed her diet. She denies any recent fevers, chills, chest pain, cough, shortness of breath, nausea , vomiting, diarrhea. She denies lightheadedness or dizziness. She has urinary urgency and incontinence at baseline, which she take Ditropan twice daily for. She denies numbness, tingling, or weakness. She notes tremors at baseline for quite some time. According to the patient, she is feeling off balance when walking, has had multiple falls over the last month hitting her head at least twice. The patient was last seen well at 9 p.m. last night on . Her son found her confused to the time of day today. She was trying to feed her dinner and put him to bed at breakfast time. She made hot dogs for breakfast. She was typically not confused and her son called EMS and she was brought to the emergency room for further evaluation. While in the emergency room, she received 2 L of saline. She was noted to be anemic when compared to her baseline 7 days ago. Her hemoglobin is down from 14.1 to 11.6. She denies any signs of bleeding. Her creatinine is also elevated above her baseline, she was previously 1.42 on 05/23/18. She had an unremarkable urinalysis. She was seen in consultation by Neurology who suspected that her symptoms were secondary to polypharmacy and the hospitalists were asked to evaluate the patient for admission. PAST MEDICAL HISTORY: 1. Hypothyroidism. 2. Glaucoma. 3. Arthritis. 4. Depression. 5. Anxiety. 6. Rheumatoid arthritis. 7. Parkinsonism. PAST SURGICAL HISTORY: 1. Status post appendectomy. 2. Status post left ankle surgery. 3. Status post knee arthroscopy. 4. Status post laparoscopic cholecystectomy. HOME MEDICATIONS: Include: 1. Lamictal 100 mg oral twice daily. 2. Klonopin 1 mg oral 3 times daily as needed for anxiety. 3. Geodon 80 mg oral every evening. 4. Ditropan 5 mg oral 3 times daily as needed for bladder control. 5. Remeron 30 mg oral daily at bedtime. 6. Concerta 36 mg oral twice daily. 7. Levothyroxine 112 mcg oral daily. 8. Plaquenil 400 mg oral every evening. 9. Cymbalta 90 mg oral every morning. 10. Cogentin 0.5 mg oral twice daily. 11. Aspirin 162 mg oral daily. ALLERGIES: PENICILLIN, SULFA, BUPROPION, DEPAKOTE, SHELLFISH, and TETANUS. FAMILY HISTORY: The patient denies any family history of coronary artery disease or diabetes. Her maternal grandmother had a history of breast cancer. The patient's mother with a history of dementia, father with a history of CHF and Parkinson's. SOCIAL HISTORY: The patient is a former smoker, smoking 1 pack a day from age 20 to 2000. She denies alcohol or recreational drug use. She lives with her son and . She is currently the caregiver of her mother with dementia and her . Her son, Alfredo Arizmendi, will be her surrogate decision maker in the event she is unable to make decisions for herself. REVIEW OF SYSTEMS: I performed an 11-point review of systems. All the pertinent positives and negatives are mentioned in the history of present illness. The remaining review of systems are negative. PHYSICAL EXAMINATION GENERAL APPEARANCE: The patient is alert, pleasant, and appears to be in no acute distress. VITAL SIGNS: Temperature 98.5, heart rate 68, respiratory rate 20, O2 sat 97% on room air, blood pressure 116/66. HEENT: Normocephalic, atraumatic. Pupils are equal and reactive to light. Extraocular movements are intact. RESPIRATORY: There is no accessory muscle use. The lungs are clear to auscultation bilaterally. CARDIOVASCULAR: Regular rate and rhythm. S1 and S2 present. There are no murmurs, rubs, or gallops heard. ABDOMEN: Soft, nontender, nondistended. Bowel sounds present x4. EXTREMITIES: No lower extremity edema. DP and PT pulses are 2+ and symmetric. MUSCULOSKELETAL: There is no clubbing or cyanosis noted. The patient exhibits good strength in all extremities. NEUROLOGICAL: The patient is alert and oriented to place and person. She believes it is 2012. She is oriented to situation. Cranial nerves II through XII are grossly intact. Her hand pharmacy order entry technician are equal. Dorsi and plantarflexion are equal bilateral. She is able to perform heel from ankle to knee bilateral without difficulty. She is able to perform [id number] bilaterally without difficulty. PSYCHOLOGICAL: The patient is calm and cooperative. SKIN: There are no rashes or abnormalities seen. She does have multiple areas of ecchymosis to her legs and to her forehead. DIAGNOSTIC STUDIES/LAB DATA: Sodium 142, potassium 3.5, chloride 109, CO2 of 28, BUN 19, creatinine 1.88, glucose 98. White blood cell count 5.7, hemoglobin 11.6, hematocrit 34, platelet count 182,000. Urinalysis significant for specific gravity 1.006, trace leukocyte esterase, squamous epithelial cells present, bacteria 1+. EKG shows sinus rhythm, a rate of 70. There are no acute signs of ischemia. This is similar to previous from 05/22/18. Chest x-ray from today. Radiologist's impression: No active disease. Brain CT from today. Radiologist's impression: No evidence for acute intracranial abnormalities. IMPRESSION: Ms. Arizmendi is a 67-year-old female with past medical history significant for hypothyroidism, glaucoma, arthritis, depression, anxiety, rheumatoid arthritis, and Parkinsonism who presented to the emergency room with confusion. She will be admitted under observation for confusion. ASSESSMENT/PLAN: 1. Confusion. I suspect this is secondary to polypharmacy. The patient is on multi-psychiatric medications. She has already been seen in consultation by Neurology while in the ED. We will get an MRI of her brain to evaluate for any contusions after her multiple falls and hitting her head. She had a brain CT that was negative. Her urinalysis is unremarkable. She will have neuro checks q.4 hours. We will monitor her on telemetry. She just recently had a CTA and carotid Dopplers and an echo. We will hold off on repeating these studies at this time and work on decreasing her Concerta and Geodon. 2. Anemia. The patient denies any signs of bleeding. We will recheck her H and H later tonight and again in the morning. 3. Acute on chronic kidney disease. The patient's stage 3 chronic kidney disease is at baseline. Her creatinine is slightly above her baseline. She reports eating and drinking well, but I suspect she could be a little dehydrated. I am going to give her gentle IV hydration overnight and recheck her labs in the morning. Will adjust medications to renal dosing. Avoid nephrotoxic medications. 4. Anxiety and depression. I am going to continue the patient on her current dose of Lamictal as needed, clonazepam. I am going to decrease her Geodon to 40 mg daily, this was previously decreased from 160 mg daily to 80 mg daily on her last admission. Continue her on her Remeron and decrease her Concerta to 18 mg twice daily. I am going to continue her Cymbalta and ask Psychiatry to consult on the patient to assist with adjusting her psychiatric medications. 5. Hypothyroidism. The patient had a TSH of 1.37 on 05/22/18. We will continue her home levothyroxine dose. 6. Rheumatoid arthritis. We will continue the patient on her home Plaquenil. 7. Parkinsonism. There is a question of whether she has Parkinson's versus Parkinson's symptoms secondary to her Geodon use. She will be continued on her home Cogentin. She should continue to follow with Neurology as outpatient at discharge. 8. Fluids, electrolytes, and nutrition. The patient will be on a regular diet. 9. Code status. Full code. 10. DVT prophylaxis. She is moderate risk, will have subcu heparin. 11. Disposition. Observation. TIME SPENT: Time for this admission was approximately 60 minutes, greater than half of that was spent with the patient and her family discussing medications, past medical history, the events leading to her arrival today, and performing a physical examination. The case has been reviewed with the attending, Dr. Young, who agrees with the plan of care. Reviewed by NATE MOREIRA 06/03/18 1202 [id number]/[facility] #: [id number] [place]YS[place]
[2018-05-30] MEDS ORDERED: Benztropine TAB* 1 MG PO SCH (21:00)
[2018-05-30] MEDS: Heparin VIAL(*) 5000 UNITS/ML VIAL (FIVE THOUSAND) SUBCUT SCH (21:57)
[2018-05-31] MEDS: NS 0.9% 1000 ML* 1,000 ML IV SCH ×2 (03:28→13:54)
[2018-05-31] MEDS: Heparin VIAL(*) 5000 UNITS/ML VIAL (FIVE THOUSAND) SUBCUT SCH ×3 (05:52→22:05)
[2018-05-31] MEDS: Levothyroxine TAB* 112 MCG TAB PO SCH (05:52)
[2018-05-31 05:57] LABS: ABS Basophils 0 10^3/ul (0-0.2); ABS Eosinophils 0 10^3/ul (0-0.6); ABS Lymphocytes 1.6 10^3/ul (1.0-4.8); ABS Monocytes 0.3 10^3/ul (0-0.8); ABS Neutrophils 2.3 10^3/ul (1.5-7.7); ABS Nucleated RBC 0 10^3/ul; Eosinophil % 0.3 % (0-6); Hematocrit 32 % (35-47); Hemoglobin 10.9 g/dl (12.0-16.0); Lymphocyte % 37.2 % (25-47); Mean Corpuscular HGB Conc 34 g/dl (31-36); Mean Corpuscular Hemoglobin 31 pg (27-31); Mean Corpuscular Volume 90 fL (80-97); Mean Platelet Volume 7.8 um3 (7.4-10.4); Nucleated Red Blood Cells % 0.1; Platelet Count 144 10^3/ul (150-450); Red Blood Count 3.54 10^6/ul (4.00-5.40); Red Cell Distribution Width 13 % (10.5-15); White Blood Count 4.3 10^3/ul (3.5-10.8)
[2018-05-31 06:14] LABS: EGFR Non-African American 37.1 (>60)
[2018-05-31] MEDS: DULoxetine DR CAP* 30 MG CAP.DR PO SCH (08:12)
[2018-05-31] MEDS: Aspirin 81 mg CHEW TAB* 81 MG TAB.CHEW PO SCH (08:18)
[2018-05-31] MEDS: Methylphenidate ER TAB* 18 MG PO SCH ×2 (08:19→16:24)
[2018-05-31] MEDS: lamoTRIgine TAB(*) 100 MG PO SCH (08:19)
[2018-05-31] MEDS ORDERED: DULoxetine DR CAP* 30 MG CAP.DR PO SCH (09:00)
[2018-05-31] MEDS ORDERED: Potassium Chlor TAB* 20 MEQ TAB.ER PO STA (09:14)
--- NOTE | 2018-05-31 16:37 | PN ---
Subjective Date of Service: 05/31/18 Interval History: Pt seen and examined. Meds and labs reviewed. Pt mentioned she had been recently prescribed Geodon and Oxybutynin two days ago. CC: N/A ROS: Denied LIMON/dizziness, F/C, N/V, CP, SOB, increased cough, sputum production , abd pain, diarrhea, constipation, dysuria, myalgias, arthralgias, throat pain , and new skin lesions. The rest of the 14 point ROS are unremarkable. PHYSICAL EXAM: GEN APPEARANCE: Awake, not in acute distress HEENT: NC/AT, PERRLA, moist oral mucosa, (-) throat erythema NECK: Soft, supple, (-) cervical LAD, (-)JVD HEART: S1S2 WNL, RRR, No MRG CHEST: CTA, BL, GAE, No W/R/R ABD: Soft, ND/NT, NABS 4x Q EXT: No C/C/E SKIN: Warm to touch PSYCH: No active psychosis, hallucinations, depression, SI/HI Objective Active Medications: Aspirin (Aspirin 81 Mg Chew Tab*) 162 mg PO DAILY [facility] Last Admin: 05/31/18 08:18 Dose: 162 mg Clonazepam (Klonopin Tab(*)) 1 mg PO TID PRN PRN Reason: ANXIETY Duloxetine HCl (Cymbalta Cap*) 30 mg PO QAM [facility] Last Admin: 05/31/18 08:12 Dose: 30 mg Heparin Sodium (Porcine) (Heparin Vial(*)) 5,000 units SUBCUT Q8HR [facility] Last Admin: 05/31/18 16:24 Dose: 5,000 units Hydroxychloroquine Sulfate (Plaquenil Tab*) 400 mg PO QPM [facility] Last Admin: 05/30/18 17:56 Dose: 400 mg Sodium Chloride (Ns 0.9% 1000 Ml*) 1,000 mls @ 100 mls/hr IV PER RATE [facility] Last Admin: 05/31/18 13:54 Dose: 100 mls/hr Lamotrigine (Lamictal Tab(*)) 75 mg PO BID [facility] Levothyroxine Sodium (Synthroid Tab*) 112 mcg PO DAILY@0600 [facility] Last Admin: 05/31/18 05:52 Dose: 112 mcg Methylphenidate HCl (Concerta Er Tab*) 18 mg PO BID@0700,1400 [facility] Last Admin: 05/31/18 16:24 Dose: 18 mg Mirtazapine (Remeron Tab*) 30 mg PO BEDTIME [facility] Last Admin: 05/30/18 20:38 Dose: 30 mg Vital Signs - 8 hr 05/31/18 05/31/18 11:29 15:26 Temperature 98.2 F 98.4 F Pulse Rate 62 66 Respiratory 16 16 Rate Blood Pressure 124/64 120/59 (mmHg) O2 Sat by Pulse 98 100 Oximetry Oxygen Devices in Use Now: None Result Diagrams: 05/31/18 05:06 05/31/18 05:06 Additional Lab and Data: Lab Results 05/30/18 Range/Units 10:49 WBC 5.7 (3.5-10.8) 10^3/ul RBC 3.75 L (4.00-5.40) 10^6/ul Hgb 11.6 L (12.0-16.0) g/dl Hct 34 L (35-47) % MCV 89 (80-97) fL MCH 31 (27-31) pg MCHC 35 (31-36) g/dl RDW 13 (10.5-15) % Plt Count 182 (150-450) 10^3/ul MPV 7.7 (7.4-10.4) um3 Neut % (Auto) 66.4 (38-83) % Lymph % (Auto) 21.9 L (25-47) % [place] % (Auto) 10.0 H (0-7) % Eos % (Auto) 0.6 (0-6) % Baso % (Auto) 1.1 (0-2) % Absolute Neuts (auto) 3.8 (1.5-7.7) 10^3/ul Absolute Lymphs (auto) 1.3 (1.0-4.8) 10^3/ul Absolute Monos (auto) 0.6 (0-0.8) 10^3/ul Absolute Eos (auto) 0 (0-0.6) 10^3/ul Absolute Basos (auto) 0.1 (0-0.2) 10^3/ul Absolute Nucleated RBC 0 10^3/ul Nucleated RBC % 0 Microbiology and Other Data: Microbiology 05/30/18 13:53 Urine Culture - Final Urine Assess/Plan/Problems-Billing Assessment: - Patient Problems (1) Confusion Current Visit: Yes Status: Acute Code(s): R41.0 - DISORIENTATION, UNSPECIFIED SNOMED Code(s): 043701978 Comment: -Will D/C Oxybutynin due to anti-cholinergic effects that can lead to confusion -Agree with Dr. Carter assessment -Will decrease Lamotrogine to 75 mg PO BID at this time to slowly taper this. I am unclear as to what psychiatric condition she is being treated for in regards to Lamotrigine and Geodon, but they are usually used for bipolar d/o. Will await any input by Dr. Betancourt (2) Anemia Current Visit: Yes Status: Acute Code(s): D64.9 - ANEMIA, UNSPECIFIED SNOMED Code(s): 440067746 Comment: -Will check Iron studies, B12 and folate levels -Will continue watchful waiting (3) [id number] kidney injury Current Visit: Yes Status: Acute Code(s): N17.9 - ACUTE KIDNEY FAILURE, UNSPECIFIED; N18.9 - CHRONIC KIDNEY DISEASE, UNSPECIFIED SNOMED Code(s): 965422374 Comment: -Improving -Likely due to MS change due to recent addition of oxybutynin to her regimen two days prior (4) Anxiety Current Visit: Yes Status: Acute Code(s): F41.9 - ANXIETY DISORDER, UNSPECIFIED SNOMED Code(s): 89887969 Comment: -Continue Clonazepam for now (5) DVT prophylaxis Current Visit: Yes Status: Acute Code(s): VAF2904 - SNOMED Code(s): 547709625 Comment: -Continue Heparin SQ Status and Disposition: -For PT eval
--- NOTE | 2018-05-31 17:02 | CONS ---
CC: Dr. Philip; Member * NEUROLOGY FOLLOWUP NOTE: DATE OF FOLLOWUP: 05/31/18 LOCATION: She is an inpatient in room 437. HOSPITALIST: Susan Jerry NP CHIEF COMPLAINT: Unsteadiness, confusion. INTERVAL HISTORY: Since yesterday, Shanta feels better. She says she still was little bit confused last night and she remembers she was talking "gibberish." She said she was up to the bathroom today and felt steady on her feet. She has not had any falls since she has been here. Her medications have been streamlined. Nursing note indicates she was able to ambulate a short distance with minimal assist. MEDICATIONS: Reviewed and she is on: 1. Methylphenidate 18 mg p.o. b.i.d. 2. Remeron 30 mg p.o. q.h.s. 3. Geodon 40 mg p.o. q.p.m. 4. Synthroid 112 mcg p.o. daily. 5. Lamotrigine 100 mg p.o. b.i.d. 6. Plaquenil 400 mg p.o. q.p.m. 7. Heparin subcutaneous 5000 units q.8 hours. 8. Cymbalta 30 mg p.o. q.a.m. 9. Clonazepam 1 mg p.o. t.i.d. 10. Aspirin 162 mg p.o. daily. PHYSICAL EXAM: She is well-nourished and well-hydrated. Temperature 98.2 orally, blood pressure 124/64, heart rate in the 60s and regular. Respiratory rate 16, oxygen saturation is 98% on room air. Neurologically, pupils are equal and eye movements are normal. Facial musculature is notable for mild hypomimia. Speech is clear. She has oral- buccal-lingual dyskinesias. On motor exam, she has good strength in the limbs. There is some paratonia in the legs, but I do not detect any cogwheeling or spasticity. She has moderate sustention and action tremors symmetrically in both hands. I do not see a rest tremor. Finger taps are slow bilaterally, little worse on the left. I did not attempt to ambulate her. She is alert to person, place, and day. DIAGNOSTIC STUDIES/LAB DATA: Includes an MRI of the brain from yesterday interpreted as showing some chronic ischemic changes, but no acute abnormalities. Other laboratory data notable for a stable CBC with a hemoglobin of 10.9, slight drop in platelet count to 144,000. Chemistries today notable for potassium of 3.2, creatinine is down to 1.4, which is more at her historical baseline. IMPRESSION AND PLAN: Impression is that of multiple falls from what I suspect is medication-related parkinsonism. She may have also been confused from her anticholinergics and polypharmacy. She seems more alert today. Recommend stopping Geodon entirely. Recommend continuing her lorazepam with consideration to a slow outpatient taper depending upon her outpatient psychiatrist and primary care physician's wishes. I think she should stay on one aspirin a day 81 mg. I think she could also remain on lamotrigine and her Remeron. I do not recommend a trial of levodopa, but rather have her come off of the Geodon and see how she does over subsequent weeks. If she does develop progressive parkinsonism, then a diagnosis of idiopathic Parkinson's disease would need to be considered and possibly treated. I could see her in followup as an outpatient to address that. Also, her Cymbalta has been cut down from 90 mg to 30 mg a day more in line with her renal function. [id number]/[facility] #: [id number] [facility] HOSPITALMarialuisa
[2018-05-31] MEDS: Mirtazapine TAB* 15 MG PO SCH (20:11)
[2018-05-31] MEDS: Hydroxychloroquine TAB* 200 MG PO SCH (20:12)
[2018-05-31] MEDS: lamoTRIgine TAB(*) 25 MG PO SCH (20:12)
--- NOTE | 2018-05-31 20:18 | CONS ---
CONSULTATION REPORT: DATE OF CONSULT: 05/31/18 PROVIDER: Dr. Mariano Galaviz. DISTILLING DEPARTMENT SUPERVISOR: Dr. Marcel Betancourt. REASON FOR CONSULT: Confusion, possibly secondary to psychiatric medications. SUBJECTIVE HISTORY: Psychiatry is asked to see this 67-year-old white female with a history of psychiatric disability secondary to depression, who also has a history of hypothyroidism, glaucoma, arthritis, rheumatoid arthritis , and treatment-emergent parkinsonism, who was recently hospitalized from to 05/23/18, who now returns with confusion and difficulty ambulating. She was worked up by Hospitalist, Susan Jerry, who initially consulted me fearing that these symptoms may be secondary to psychiatric medications. It does appear that the patient is on psychiatric polypharmacy taking Concerta, Remeron, Geodon, lamotrigine, benztropine, Cymbalta, and clonazepam. The further history is that since she has been on the hospitalist service, some of these medications have been reduced resulting in the patient being much more alert and less confused. Medications changes thus far include the reduction of methylphenidate extended release from 36 to 18 mg, Geodon was reduced from 80 to 40 mg, and Cymbalta was reduced from 90 to 30 mg mostly because her renal function is compromised. Klonopin has been kept the same at 1 mg p.o. t.i.d. while Remeron has similarly been untouched at 30 mg nightly. I was able to reach her outpatient provider, Dr. Nate Hi, who indicates that this patient has been stable for a long period in the community, has not required hospitalization and has been conscientious in taking her medications as prescribed. He did not feel that she had overdosed or was abusing her medications in any way. PAST PSYCHIATRIC HISTORY: The patient has no prior history of psychiatric hospitalization. She has been seeing Dr. Hi for approximately 5 years and has an appointment for followup tomorrow. She is currently not engaged in psychotherapy, but has had numerous counselors in the past. She denies any prior suicide attempts, has no history of violence towards others, and she denies history of abuse or neglect growing up. SUBSTANCE ABUSE HISTORY: Significant for being former daily smoker who quit tobacco in the year 1999. She does not drink or use illicit drugs. PAST MEDICAL HISTORY: Significant for hypothyroidism, glaucoma, arthritis, rheumatoid arthritis, and parkinsonism. PAST SURGICAL HISTORY: She is status post appendectomy, left ankle surgery, knee arthroscopy, and laparoscopic cholecystectomy. MEDICATIONS: Home medications include: 1. Lamictal 100 mg twice daily. 2. Klonopin 1 mg 3 times daily. 3. Geodon 80 mg nightly. 4. Ditropan 5 mg 3 times daily for bladder control. 5. Remeron 30 mg orally at bedtime. 6. Concerta 36 mg twice daily. 7. Levothyroxine 112 mcg p.o. daily. 8. Plaquenil 400 mg orally every evening. 9. Cymbalta 90 mg every morning. 10. Cogentin 0.5 mg twice daily. 11. Aspirin 162 daily. ALLERGIES: Include PENICILLIN, SULFA, BUPROPION, DEPAKOTE, SHELLFISH, and TETANUS. FAMILY HISTORY: Noncontributory. SOCIAL HISTORY: The patient was born and raised here in the [facility]. Her father is , but her mother is still alive and the patient does have some caregiving responsibilities for her mother. The patient has been for 45 years to the same man, who currently has Alzheimer's disease. She is his primary poultry raiser. She is the third of 4 total children, having 2 older sisters and 1 younger brother. She does have 1 son approximately 45 years old. The patient is retired. She used to work as an clerical administrative assistant at the [employer], but then stopped working and was getting Social Security and Disability payments for depression. She has never been in the , identifies as spiritual, but not jew and has no significant legal history. MENTAL STATUS EXAM: The patient is a very pleasant, aging, white female, dressed in the patient gown, who is sitting up in her bed eating her dinner. She is calm, cooperative, well groomed, easy to establish a rapport with and appears to be a fairly good historian. Speech has a normal rate, tone, and volume. Mood is euthymic with a full affect. Thought process is linear and goal directed. Thought content is significant for her desire to complete her hospitalization and follow up with Dr. Hi in the outpatient setting. She denies suicidal or homicidal ideations. She denies auditory or visual hallucinations. Insight and judgment are fair given her willingness to undergo treatment. Cognitively, she is awake and alert. At times, she shows some mild confusion, but she is otherwise oriented to her surroundings as well as to her situation. DIAGNOSES: [place] I: Cognitive disorder, not otherwise specified; major depressive disorder by history. [place] II: Deferred. IMPRESSION: Psychiatry was asked to see this 67-year-old, , white female with a history of depression as well as multiple other medical comorbidities due to confusion and the question as to whether her cognitive problems may be related to psychiatric medications. The treatment team has already made a number of decreases in her medicines, for example getting rid of benztropine and her Ditropan. They have reduced methylphenidate from 36 mg to 18 mg twice daily, reduced duloxetine from 90 mg to 30 mg daily, and essentially discontinued Geodon. Her mirtazapine and Klonopin have been left alone. RECOMMENDATIONS FOR PRIMARY TEAM: At this point, the patient appears to be improving with the interventions already put in place. My recommendation is that we continue her medication regimen at these lower levels and that she follow up with Dr. Nate Hi, who is already aware of this hospitalization. He has in fact rescheduled her appointment for tomorrow, 06/01 at 2:30 p.m. If the patient is still hospitalized, Psychiatry will follow up with her tomorrow. Thank you for the consultation. [id number]/[facility] #: [id number] [place]
[2018-06-01] MEDS: NS 0.9% 1000 ML* 1,000 ML IV SCH (00:49)
[2018-06-01] MEDS ORDERED: Acetaminophen TAB* 325 MG PO PRN (04:02)
[2018-06-01 05:11] LABS: ABS Basophils 0 10^3/ul (0-0.2); ABS Eosinophils 0 10^3/ul (0-0.6); ABS Lymphocytes 1.3 10^3/ul (1.0-4.8); ABS Monocytes 0.4 10^3/ul (0-0.8); ABS Neutrophils 3.1 10^3/ul (1.5-7.7); ABS Nucleated RBC 0 10^3/ul; Eosinophil % 0 % (0-6); Hematocrit 32 % (35-47); Lymphocyte % 26.8 % (25-47); Mean Corpuscular HGB Conc 35 g/dl (31-36); Mean Corpuscular Hemoglobin 31 pg (27-31); Mean Corpuscular Volume 91 fL (80-97); Mean Platelet Volume 7.5 um3 (7.4-10.4); Nucleated Red Blood Cells % 0.1; Platelet Count 154 10^3/ul (150-450); Red Blood Count 3.52 10^6/ul (4.00-5.40); Red Cell Distribution Width 13 % (10.5-15); White Blood Count 4.9 10^3/ul (3.5-10.8)
[2018-06-01] MEDS: Levothyroxine TAB* 112 MCG TAB PO SCH (06:33)
[2018-06-01] MEDS: Heparin VIAL(*) 5000 UNITS/ML VIAL (FIVE THOUSAND) SUBCUT SCH ×2 (06:33→13:30)
[2018-06-01] MEDS: Methylphenidate ER TAB* 18 MG PO SCH ×2 (06:40→13:30)
[2018-06-01] MEDS: DULoxetine DR CAP* 30 MG CAP.DR PO SCH (09:20)
[2018-06-01] MEDS: Aspirin 81 mg CHEW TAB* 81 MG TAB.CHEW PO SCH (09:20)
[2018-06-01] MEDS: lamoTRIgine TAB(*) 25 MG PO SCH (09:20)
--- NOTE | 2018-06-01 11:11 | DCNOTE ---
Subjective Date of Service: 06/01/18 Interval History: patient reports she feels "much better:, daughter-in -law at bedside who reports she is at her baseline. The patient reports she is 'tired' but relates this to not sleeping well in the hospital due to noise. She denies any confusion , hallucinations. reports good appetite. feels steady on her feet. Plan to leave the hospital and f/u with Dr. sprague today Objective Active Medications: Acetaminophen (Tylenol Tab*) 650 mg PO Q6H PRN PRN Reason: FEVER/PAIN Last Admin: 06/01/18 04:24 Dose: 650 mg Aspirin (Aspirin 81 Mg Chew Tab*) 162 mg PO DAILY [facility] Last Admin: 06/01/18 09:20 Dose: 162 mg Clonazepam (Klonopin Tab(*)) 1 mg PO TID PRN PRN Reason: ANXIETY Duloxetine HCl (Cymbalta Cap*) 30 mg PO QAM [facility] Last Admin: 06/01/18 09:20 Dose: 30 mg Heparin Sodium (Porcine) (Heparin Vial(*)) 5,000 units SUBCUT Q8HR [facility] Last Admin: 06/01/18 06:33 Dose: 5,000 units Hydroxychloroquine Sulfate (Plaquenil Tab*) 400 mg PO QPM [facility] Last Admin: 05/31/18 20:12 Dose: 400 mg Lamotrigine (Lamictal Tab(*)) 75 mg PO BID [facility] Last Admin: 06/01/18 09:20 Dose: 75 mg Levothyroxine Sodium (Synthroid Tab*) 112 mcg PO DAILY@0600 [facility] Last Admin: 06/01/18 06:33 Dose: 112 mcg Methylphenidate HCl (Concerta Er Tab*) 18 mg PO BID@0700,1400 [facility] Last Admin: 06/01/18 06:40 Dose: 18 mg Mirtazapine (Remeron Tab*) 30 mg PO BEDTIME [facility] Last Admin: 05/31/18 20:11 Dose: 30 mg Vital Signs - 8 hr 06/01/18 06/01/18 03:54 07:51 Temperature 98.7 F 98.1 F Pulse Rate 70 67 Respiratory 20 18 Rate Blood Pressure 116/69 106/69 (mmHg) O2 Sat by Pulse 97 95 Oximetry Oxygen Devices in Use Now: None Appearance: A+O x3 female laying in bed in NAD - flat affect Eyes: No Scleral Icterus, PERRLA Ears/Nose/Mouth/Throat: NL Teeth, Lips, Gums, Mucous Membranes Moist Neck: NL Appearance and Movements; NL JVP Respiratory: Symmetrical Chest Expansion and Respiratory Effort, Clear to Auscultation Cardiovascular: NL Sounds; No Murmurs; No JVD, RRR, No Edema Abdominal: NL Sounds; No Tenderness; No Distention Extremities: No Edema, No Clubbing, Cyanosis Skin: No Rash or Ulcers, No Nodules or Sclerosis Neurological: Alert and Oriented x 3, NL Sensation, NL Muscle Strength and Tone Lines/Tubes/Other Access: Clean, Dry and Intact Peripheral IV Nutrition: Taking PO's Result Diagrams: 06/01/18 04:46 06/01/18 04:46 Additional Lab and Data: Lab Results 05/30/18 Range/Units 10:49 WBC 5.7 (3.5-10.8) 10^3/ul RBC 3.75 L (4.00-5.40) 10^6/ul Hgb 11.6 L (12.0-16.0) g/dl Hct 34 L (35-47) % MCV 89 (80-97) fL MCH 31 (27-31) pg MCHC 35 (31-36) g/dl RDW 13 (10.5-15) % Plt Count 182 (150-450) 10^3/ul MPV 7.7 (7.4-10.4) um3 Neut % (Auto) 66.4 (38-83) % Lymph % (Auto) 21.9 L (25-47) % [place] % (Auto) 10.0 H (0-7) % Eos % (Auto) 0.6 (0-6) % Baso % (Auto) 1.1 (0-2) % Absolute Neuts (auto) 3.8 (1.5-7.7) 10^3/ul Absolute Lymphs (auto) 1.3 (1.0-4.8) 10^3/ul Absolute Monos (auto) 0.6 (0-0.8) 10^3/ul Absolute Eos (auto) 0 (0-0.6) 10^3/ul Absolute Basos (auto) 0.1 (0-0.2) 10^3/ul Absolute Nucleated RBC 0 10^3/ul Nucleated RBC % 0 Microbiology and Other Data: Microbiology 05/30/18 13:53 Urine Culture - Final Urine Assess/Plan/Problems-Billing Assessment: 67 yo female with PMH of psychiatric disability secondary to depression, hypothyroidism, RA, Parkinsonsim thought to be secondary to medications, with recent hospitalization for possible TIA who presented on with confusion thought to be secondary to polypharmacy - Patient Problems (1) Confusion Comment: - much improved now back to baseline - suspect polypharmacy - Appreciate both psych and neurology consults - agrees with polypharmacy - D/C Oxybutynin, benzeoprin, Geodon - DC home on lowered medication doses. (2) [id number] kidney injury Comment: -at baseline -Likely due to MS change due to recent addition of oxybutynin to her regimen two days prior (3) Anemia Comment: -anemia of chronic disease (4) Anxiety Comment: -Continue Clonazepam (5) DVT prophylaxis Comment: -Continue Heparin SQ (6) Major depression Comment: - follows with Dr. sprague who will see patient after discharge today at 230pm. - appreciate psych consult - agrees with lowering doses of medications and DC geodon and anticolinergics Status and Disposition: -Plan for DC to home today in care of her daughter in law
--- NOTE | 2018-06-01 12:16 | CONSULT ---
Identification - Patient Identification Reason for Psychiatric Consultation: Incapacitating Symptoms -: Patient is a 67 year old, F admitted on 05/30/18. - [facility] Identification Employment Status: Disabled Hx Psychiatric Hospitalization: No History - Objective HPI: Psychiatry followed up with the patient and met with her and her daughter. She continues to show improvement in mentation and is pending discharge back to the community this afternoon. In fact, she has a follow up appointment today at 3PM with psychiatrist Nate Hi MD. She appears to be tolerating the decreases in her psychiatric medications and denies depressed mood or SI. Exam Appearance: Well Developed/Nourished Hygiene: Normal Grooming: Well Kept Psychomotor Activities: Normal Exhibits Abnormal Movement: No Attitude and Relatedness: Cooperative Eye Contact: Good - Speech Quality: Unpressured Latencies: Normal Quantity: Appropriate Patient's Decription of Mood: "Fine" Observed Affect: Good Affect Consistent with: Euthymia Patient's Thought Process: Coherent Thought Content: No Passive Wish, No Suicidal Planning, No Homicidal Ideation, No Paranoid Ideation Experiencing Hallucinations: No, Sensorium is Clear Type of Hallucinations: Visual: No, Auditory: No, Command: No Level of Consciousness: Alert Orientation: Yes Intact, Yes Orientated to Time, Yes Orientated to Place, Yes Orientated to Person Impulse Control: Tenuous Insight and Judgement: Fair Impression - Impression Clinical Impression: 67 y.o. , white female with a history of depression, currently admitted to Medicine due to confusion, evaluated due to concerns that patient's mentation may be compromised by psychiatric polypharmacy. Inpatient DSM-V Dx: F29 Merits Inpatient Hospitalization: No Plan - Treatment Plan Treatment Plan: The patient has tolerated the various reductions in her psychiatric regimen and is feeling well. Discharge today with f/u this afternoon with Dr. Hi. Continued Medication Management: Different Medication Medications: Current Medications Acetaminophen (Tylenol Tab*) 650 mg PO Q6H PRN PRN Reason: FEVER/PAIN Last Admin: 06/01/18 04:24 Dose: 650 mg Aspirin (Aspirin 81 Mg Chew Tab*) 162 mg PO DAILY [facility] Last Admin: 06/01/18 09:20 Dose: 162 mg Clonazepam (Klonopin Tab(*)) 1 mg PO TID PRN PRN Reason: ANXIETY Duloxetine HCl (Cymbalta Cap*) 30 mg PO QAM [facility] Last Admin: 06/01/18 09:20 Dose: 30 mg Heparin Sodium (Porcine) (Heparin Vial(*)) 5,000 units SUBCUT Q8HR [facility] Last Admin: 06/01/18 06:33 Dose: 5,000 units Hydroxychloroquine Sulfate (Plaquenil Tab*) 400 mg PO QPM [facility] Last Admin: 05/31/18 20:12 Dose: 400 mg Lamotrigine (Lamictal Tab(*)) 75 mg PO BID [facility] Last Admin: 06/01/18 09:20 Dose: 75 mg Levothyroxine Sodium (Synthroid Tab*) 112 mcg PO DAILY@0600 [facility] Last Admin: 06/01/18 06:33 Dose: 112 mcg Methylphenidate HCl (Concerta Er Tab*) 18 mg PO BID@0700,1400 [facility] Last Admin: 06/01/18 06:40 Dose: 18 mg Mirtazapine (Remeron Tab*) 30 mg PO BEDTIME [facility] Last Admin: 05/31/18 20:11 Dose: 30 mg - Discharge Plan Discharge Plan: Outpatient Follow Up
[2018-06-01 12:21] VITALS: BP 117/51
--- NOTE | 2018-06-01 16:21 | DS ---
CC: Desmond Philip MD; Dr. Hi. * DISCHARGE SUMMARY: DATE OF ADMISSION: 05/30/18 DATE OF DISCHARGE: 06/01/18 PROVIDER: Brooke Baig NP. ATTENDING PHYSICIAN: Dr. Fernandez * (report dictated by Brooke Baig NP). PRIMARY CARE PROVIDER: Desmond Philip MD. PSYCHIATRIST: Dr. Hi. DISCHARGE DIAGNOSES: 1. Confusion secondary to polypharmacy. 2. Suspected medication related parkinsonism. SECONDARY DIAGNOSES: 1. Hypothyroidism. 2. Glaucoma. 3. Arthritis. 4. Rheumatoid arthritis. HOME MEDICATIONS: 1. Aspirin 81 mg mg p.o. daily (please note this was decreased from 162 mg daily per Neurology). 2. Cymbalta 30 mg p.o. q.a.m. 3. Concerta ER 18 mg p.o. b.i.d. (please note that this was decreased from 36 mg b.i.d.). 4. Lamictal 75 mg p.o. b.i.d. (please note that this was decreased from 100 mg p.o. b.i.d.) 5. Plaquenil 400 mg p.o. q.a.m. 6. Synthroid 112 mcg p.o. daily. 7. Mirtazapine 30 mg p.o. at bedtime. 8. Klonopin 1 mg p.o. t.i.d. p.r.n. MEDICATIONS DISCONTINUED: 1. Geodon. 2. Ditropan. 3. Cogentin. HISTORY OF PRESENT ILLNESS AND HOSPITAL COURSE: Please see history and physical by Susan Jerry for full admission details but in summary this is a 67- year-old female with a past medical history significant for psychiatric disability secondary to major depression, also the past medical history of glaucoma, hypothyroidism, rheumatoid arthritis and suspected drug- induced parkinsonism who with recent hospitalization from 05/22/18 to 05/23/18 with possible TIA who returned to the emergency department on 05/30/18 with confusion suspected to be secondary to psychiatric polypharmacy. The patient was admitted to the hospitalist service to the telemetry unit. The patient's Geodon, Ditropan, and Cogentin were discontinued and her Concerta was decreased from 36 mg p.o. b.i.d. to 18 mg p.o. b.i.d., and her Lamictal was decreased from 100 mg p.o. b.i.d. to 75 mg p.o. b.i.d. as well as her Cymbalta was reduced from [address] Frausto also recommended reducing her aspirin to 81 mg p.o. daily. The patient has done well throughout her hospitalization. She is back to her baseline and would like to go home today. Her daughter is at the bedside confirming that the patient is stable for discharge and at her baseline. In regards to the patient's workup her labs showing some acute on chronic renal insufficiency presenting with a creatinine of 1.88. She is back down to her baseline of 1.33. She is noted to have normocytic anemia most likely secondary to anemia of chronic disease. Urinalysis was unremarkable and had a negative urine culture. She has remained afebrile throughout the hospitalization and hemodynamically stable. She was seen and evaluated by Physical Therapy who determined the patient is stable and has no acute physical therapy needs at this time. The patient was seen in consultation by neurologist, Dr. Joiner for unsteadiness and confusion in which his impression is of multiple falls from what he suspects is medication -related parkinsonism and most likely confused from her anticholinergics and polypharmacy. He did recommend stopping the Geodon entirely and recommend continuing her lorazepam with consideration to a slow outpatient taper depending upon her outpatient psychiatrist and primary care physician wishes. Please see his full dictated note for full details. He is happy to see the patient in followup as an outpatient to follow her parkinsonism. He agreed with the other medication changes made by the hospitalist team. The patient was seen in consultation by psychiatrist Dr. Marcel Betancourt who agreed with the plan as stated above. He also spoke with her psychiatrist Dr. Hi who the patient will see today at 2:30 p.m. DISCHARGE PLAN: 1. The patient is going to be discharged from the hospital and will follow up with her psychiatrist Dr. Hi today at 2:30. The [id number] will transport the patient and agrees with this plan. The patient's [id number] and son are involved in her care and will stay with the patient for couple of days. 2. Followup with primary care provider, Dr. Philip in 4 to 7 days. 3. Followup with Dr. Joiner in 1 month. 4. The patient has been referred to [facility]. TIME SPENT: Approximately 60 minutes were spent on this discharge. BROOKE BAIG, RIDE ATTENDANT [id number]/[facility] #: [id number] [place]
== END 2018-06-01 14:31 | disposition home or self-care (01) ==
LOC: ED 10:28 → MEDTELE 14:06
PROVIDERS: ADMIT Internal Medicine; ATTEND Hospitalist
DX: R41.0 Disorientation, unspecified (principal); E03.9 Hypothyroidism, unspecified; D64.9 Anemia, unspecified; N18.3 Chronic kidney disease, stage 3 (moderate); N17.9 Acute kidney failure, unspecified; H40.9 Unspecified glaucoma; M06.9 Rheumatoid arthritis, unspecified; Z79.899 Other long term (current) drug therapy; Z79.82 Long term (current) use of aspirin; Z88.0 Allergy status to penicillin; Z88.2 Allergy status to sulfonamides; Z88.8 Allergy status to other drugs, medicaments and biological substances; G20 Parkinson's disease; F32.9 Major depressive disorder, single episode, unspecified; F41.9 Anxiety disorder, unspecified; Z87.891 Personal history of nicotine dependence
CPT/HCPCS: 36415; 70450; 70551; 71045; 80048; 80053; 81003; 81015; 82607; 82728; 82746; 83540; 83550; 83605; 83690; 83735; 84100; 84484; 85014; 85018; 85025; 85610; 85730; 86140; 87086; 93005; 96360; 96361; 96372; 99284; A9270-GY; G0378; G8978-GP-CH; G8979-GP-CH; G8980-GP-CH; J1644